=== PATIENT | female | born 1995 | race Asian ===

== ENCOUNTER 2020-01-29 20:13 | Emergency (ER) | payer MEDICAID ==
[~2020-01-29] VITALS: Ht 165.1 cm; Wt 86.2 kg
[2020-01-29 20:23] VITALS: Ht 165.1 cm; Wt 86.2 kg
[2020-01-30 00:22] VITALS: BP 109/50
== END 2020-01-30 00:22 | disposition home or self-care (01) ==
LOC: ED 20:13
DX: M54.32 Sciatica, left side (principal); J45.909 Unspecified asthma, uncomplicated
CPT/HCPCS: Q0092